=== PATIENT | female | born 1975 | race Caucasian/White ===

== ENCOUNTER 2016-11-23 11:06 | Inpatient (IN) | payer OTHER ==
[~2016-11-23] VITALS: Ht 157.5 cm; Wt 82.9 kg
--- NOTE | ~2016-11-23 | HP ---
PATIENT'S NAME: HEIDI BROWN [facility] AGE: 41 Y [address] ROOM: [place] [address] LOCATION: [facility] ADMIT DATE: 11/23/2016 History & Physical DISCHARGE DATE: FAMILY PHYSICIAN: Simran Cota MD ATTENDING PHYSICIAN: Simran Cota DATE OF SERVICE: 11/24/2016 CHIEF COMPLAINT: Preeclampsia. HISTORY OF PRESENT ILLNESS: This is a 41-year-old 1 female at 39 weeks and 4 days gestation by oseas singh. She is a patient of Dr. Cota. She presented to the office with elevated blood pressures. She had trace proteinuria. She came over to the hospital and had some laboratory work done, and it was noted that her blood pressures were even higher, and her urine dip showed over 500 mg/dL of protein. Urine hnjucsh-yg-cisyclyajv ratio was too high to measure, and the decision was made for induction and she was started on magnesium sulfate by Dr. Cota. She had no symptoms. She has had no headaches. No right upper quadrant pain. No changes in vision. No fevers, chills, shortness of breath, chest pain, nausea, or vomiting. This has been uncomplicated. Her laboratory data has been normal thus far. She failed her 1-hour Glucola, but passed her 3-hour Glucola. She is AMA, but did not have any genetic testing. PAST MEDICAL HISTORY: No chronic medical problems. PAST SURGICAL HISTORY: None. 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 She is blood type A positive, antibody screen negative, RPR negative, rubella immune, group B Strep positive, hepatitis B serum antigen negative. She had a normal anatomy scan, which correlates with her dating from her previous ultrasound with no placenta previa noted. SOCIAL HISTORY: She does not smoke, drink, or use street drugs. Her first of cardiac arrest. She is in a stable relationship now. FAMILY HISTORY: She has a mother with breast cancer. Father with heart disease. REVIEW OF SYSTEMS: PATIENT'S NAME: HEIDI BROWN [facility] AGE: 41 Y [address] ROOM: [place] [address] LOCATION: [facility] ADMIT DATE: 11/23/2016 History & Physical DISCHARGE DATE: FAMILY PHYSICIAN: Simran Cota MD ATTENDING PHYSICIAN: Simran Cota Please see HPI. All systems are reviewed and negative. PHYSICAL EXAMINATION: VITAL SIGNS: Blood pressures 130s/90s, pulse 88, respirations 18. She is afebrile. She had sever range BPs on admission. GENERAL: She is alert and oriented. HEART: Regular rate and rhythm. ABDOMEN: Gravid. Estimated weight 3800 g. PELVIC: Cervix is anterior and cephalic and +2 station. LABORATORY DATA: As per HPI. Urine xvlvszr-dn-mfwpnhkuiv ratio unable to be determined, but given the amount of proteinuria, she meets the criteria for preeclampsia. CBC is normal. ASSESSMENT: 1. Intrauterine at 39 weeks and 4 days. 2. Preeclampsia. 3. Advanced maternal age. 4. Group B Strep positive. PLAN: The patient has been taken care of appropriately by Dr. Cota with magnesium sulfate, and at this point is undergoing expulsive efforts hoping for a vaginal delivery. She is on penicillin for her group B Strep prophylaxis. MD JAYLA GREEN/modl /[id number] D: [id number] T: [id number] HISTORY & PHYSICAL
--- NOTE | ~2016-11-23 | OR ---
PATIENT'S NAME: JESI BROWN [facility] AGE: 41 Y [address] ROOM: [place] [address] LOCATION: [facility] ADMIT DATE: 11/23/2016 OR/Procedure Report DISCHARGE DATE: FAMILY PHYSICIAN: Simran Cota MD ATTENDING PHYSICIAN: Simran Cota SURGEON: Simran Cota MD SALON DESIGNER: DATE OF PROCEDURE: 11/24/2016 PREOPERATIVE DIAGNOSES: 1. Severe preeclampsia. 2. 39-week intrauterine . 3. Cytotec and Pitocin induction. SUMMARY: Jesi is a 41-year-old, 1, para 0 female at 39 and 4 weeks who is admitted with elevated blood pressures. She was found to have 4+ protein in her urine and was started on mag. She received Cytotec x1. Did start having contractions and then received Pitocin as well. Artificial rupture of membranes was performed with very little fluid at about 6 p.m. She was placed on penicillin for group B strep prophylaxis. Her blood pressures were mostly maintained in pretty good control in the 130s to 140s, occasionally would go up briefly to 160 to 170. She achieved rim dilation. It was pushed back by Dr. Manley that she had consulted regarding the severe preeclampsia. She pushed for about an hour and a half. Did make much progress and then I came and checked and there was still a rim that was reduced and then she was able to make progress thereafter. She delivered a 6 pounds 8 ounce female, spontaneous vaginal delivery at 4:01 p.m. on 11/24/2016. I did place a very small midline episiotomy, which helped her delivery of the baby. There was a loose nuchal cord reduced without difficulty then the anterior shoulder and the rest of the baby delivered without difficulty. Jennifer did not have good spontaneous cry and was limp, so cord was clamped and cut and baby taken to the warmer. She was dried and did have good spontaneous cry. She received 45 seconds of oxygen and had Apgars of 6 and 9 at 1 and 5 minutes. She is a female weighing 6 pounds 8 ounces. Cord blood was obtained as well as cord pH. She delivered the placenta intact. There were no cervical or vaginal lacerations. The midline episiotomy was repaired using a running 3-0 Vicryl without difficulty. There was no extension of the episiotomy. EBL 200 mL. No complications. Mother and infant resting comfortably in the birthing room after delivery. Sponge and needle counts were correct. Total length of time of pushing was about 3-1/2, but 2 hours after the last lip was reduced. Total induction time was about from 27 hours. PATIENT'S NAME: JESI BROWN [facility] AGE: 41 Y [address] ROOM: [address] [address] LOCATION: [facility] ADMIT DATE: 11/23/2016 OR/Procedure Report DISCHARGE DATE: FAMILY PHYSICIAN: Simran Cota MD ATTENDING PHYSICIAN: Simran Cota MD AZAR OSBORNE/modl /[id number] d: 11/25/16 0016 t: 11/25/16 194, OPERATIVE SUMMARY
[2016-11-23] MEDS ORDERED: PRENATAL 1+1)(P1 TAB PO (11:38)
[2016-11-23] MEDS ORDERED: TUMS200 MG PO (11:38)
[2016-11-23 13:46] LABS: BASOPHIL # 0.1 K/uL (0.0-0.2); BASOPHIL % 0.6 %; EOSINOPHIL # 0.1 K/uL (0.0-0.5); EOSINOPHIL % 0.7 %; HEMATOCRIT 34.7 % (33.0-46.0); HEMOGLOBIN 12.2 g/dL (11.0-15.0); IMMATURE GRANULOCYTE % 0.2 %; LYMPHOCYTE # 1.5 K/uL (0.8-4.0); LYMPHOCYTE % 17.8 %; MCH 32.4 pg (27.0-34.0); MCHC 35.2 gm/dL (32.0-36.5); MONOCYTE # 0.7 K/uL (0.0-1.0); MONOCYTE % 7.6 %; MPV 14.6 fl (9.4-12.4); NEUTROPHIL # (ANC) 6.3 K/uL (1.8-7.8); NEUTROPHIL % 73.1 %; NRBC % 0 /100WBC (0-0.00); PLATELET COUNT 135 K/uL (150-450); RBC 3.77 M/uL (3.50-5.50); RDW-CV 12.5 % (11.9-14.6); WBC 8.6 K/uL (4.0-11.0)
[2016-11-23 18:11] LABS: ALBUMIN 2.6 gm/dL (3.5-5.0); ALK PHOS 132 IU/L (33-138); ALT 13 IU/L (12-78); ANION GAP 13.7 (10.0-19.0); AST 14 IU/L (10-40); BLOOD UREA NITROGEN 6 mg/dL (6-24); CALCIUM 8.6 mg/dL (8.5-10.5); CHLORIDE 106 mMol/L (96-110); CO2 22 mMol/L (22-32); CREATININE 0.6 mg/dL (0.5-1.1); ESTIMATED GFR (MDRD EQUATION) > 60; POTASSIUM 3.7 mMol/L (3.7-5.1); SODIUM 138 mMol/L (135-145); TOTAL BILIRUBIN 0.5 mg/dL (0.0-1.5); TOTAL PROTEIN 6.5 g/dL (6.0-8.4)
[2016-11-23 18:51] LABS: BILIRUBIN URINE NEGATIVE (NEGATIVE); BLOOD URINE 250 /UL (NEGATIVE); GLUCOSE URINE NEGATIVE (NEGATIVE); KETONE URINE 5 mg/dL (NEGATIVE); LEUKOCYTES URINE 100 /UL (NEGATIVE); NITRITE URINE NEGATIVE (NEGATIVE); PROTEIN URINE 500 mg/dL (NEGATIVE); SPEC GRAVITY URINE 1.005 (1.003-1.035); UROBILINOGEN URINE NORMAL (NORMAL)
[2016-11-24 16:31] LABS: BICARBONATE 21.3 mmol/L (18.0-23.0); PCO2 41 mmHg (35-45); PO2 18 mmHg (80-90)
[2016-11-24 20:06] LABS: BILIRUBIN URINE NEGATIVE (NEGATIVE); BLOOD URINE 250 /UL (NEGATIVE); GLUCOSE URINE NEGATIVE (NEGATIVE); KETONE URINE 5 mg/dL (NEGATIVE); LEUKOCYTES URINE 25 /UL (NEGATIVE); NITRITE URINE NEGATIVE (NEGATIVE); PROTEIN URINE 100 mg/dL (NEGATIVE); SPEC GRAVITY URINE 1.015 (1.003-1.035); TURBIDITY URINE 3+ (CLEAR); UROBILINOGEN URINE NORMAL (NORMAL)
[2016-11-24 20:07] LABS: COLOR URINE BROWN (YELLOW)
[2016-11-24 20:18] LABS: RBC URINE FULL FIELD #/HPF (NEGATIVE)
[2016-11-24 20:19] LABS: EPITHELIAL URINE RARE #/HPF (NEGATIVE)
[2016-11-24 20:20] LABS: AMORPHOUS URINE 4+ (NEGATIVE); BACTERIA URINE NEGATIVE (NEGATIVE)
[2016-11-25 04:50] LABS: BASOPHIL % 0.3 %; EOSINOPHIL # 0.1 K/uL (0.0-0.5); EOSINOPHIL % 0.5 %; HEMOGLOBIN 9.7 g/dL (11.0-15.0); IMMATURE GRANULOCYTE # 0.1 K/uL (0.0-0.3); IMMATURE GRANULOCYTE % 0.4 %; LYMPHOCYTE # 1.5 K/uL (0.8-4.0); LYMPHOCYTE % 10.4 %; MCH 32.3 pg (27.0-34.0); MCHC 35.1 gm/dL (32.0-36.5); MONOCYTE % 6.7 %; MPV 13.2 fl (9.4-12.4); NEUTROPHIL # (ANC) 12.1 K/uL (1.8-7.8); NEUTROPHIL % 81.7 %; NRBC % 0 /100WBC (0-0.00); PLATELET COUNT 121 K/uL (150-450); RDW-CV 12.4 % (11.9-14.6); WBC 14.8 K/uL (4.0-11.0)
[2016-11-25 04:51] LABS: HEMATOCRIT 27.6 % (33.0-46.0)
[2016-11-26] MEDS ORDERED: SURFAK240 MG PO (13:40)
[2016-11-26] MEDS ORDERED: TOPROL XL 5050 MG PO (13:41)
[2016-11-26] MEDS ORDERED: MOTRIN800 MG PO (13:43)
[2016-11-26] MEDS ORDERED: DERMOPLAST SPRA56 GM TOP ×2 (13:43)
[2016-11-26] MEDS ORDERED: LANSINOH7 GM (13:44)
[2016-11-26] MEDS ORDERED: PERCOCET 5-3251 EACH PO (13:46)
== END 2016-11-26 16:10 | disposition disaster alternative care site (69) | DRG 774 ==
LOC: GOBM 11:06 → GOBS 11:13 → GOBM 11:14 → GOBS 11-26 16:10 → GOBM 11-27 10:05
PROVIDERS: ADMIT Family Medicine
PROC: 3E033VJ Introduction of Other Hormone into Peripheral Vein, Percutaneous Approach (ICD-10-PCS; principal; 2016-11-24)
PROC: 10907ZC Drainage of Amniotic Fluid, Therapeutic from Products of Conception, Via Natural or Artificial Opening (ICD-10-PCS; principal; 2016-11-24)
PROC: 0W8NXZZ Division of Female Perineum, External Approach (ICD-10-PCS; principal; 2016-11-24)
PROC: 10E0XZZ Delivery of Products of Conception, External Approach (ICD-10-PCS; principal; 2016-11-24)
DX: O14.14 Severe pre-eclampsia complicating childbirth (principal); O98.82 Other maternal infectious and parasitic diseases complicating childbirth; Z3A.39 39 weeks gestation of pregnancy; Z37.0 Single live birth; O09.513 Supervision of elderly primigravida, third trimester; B95.1 Streptococcus, group B, as the cause of diseases classified elsewhere
CPT/HCPCS: J0610; J2001; J2405; J2540; J2590; J3010; J3475; J7120